=== PATIENT | female | born 1980 | race Hispanic/Latino ===

== ENCOUNTER 2018-08-06 05:44 | Inpatient (IN) | payer OTHER ==
[2018-08-06 07:12] LABS: Hematocrit 37.9 % (30.3-42.9); Hemoglobin 13.2 gm/dl (10.1-14.3); Mean Corpuscular HGB Conc 35 % (30-34); Mean Corpuscular Volume 93 fl (79-97); Platelet Count 248 K/mm3 (140-440); Red Blood Count 4.08 M/mm3 (3.65-5.03); Red Cell Distribution Width 13.9 % (13.2-15.2)
--- NOTE | 2018-08-06 07:35 | History and Physical Report ---
History of Present Illness Date of examination: 08/06/18 Date of admission: 08/06/18 05:44 Chief complaint: SROM History of present illness: Pt is a 38yo WF EDC 08/11/18; EGA 39 2/7 weeks presents to L&D complaining of SROM clear fluid @ 0430 followed by irregular contractions. She received late care at [facility] since 27 weeks and co-managed by [facility] due to h/o Drug use and Thyroid disease. records are available and GBS is Positive. Past History Past Medical History: thyroid disease Past Surgical History: no surgical history Social history: no significant social history, - Obstetrical History Expected Date of Delivery: 08/16/18 Actual Gestation: 38 Week(s) 4 Day(s) : 3 Medications and Allergies Allergies Allergy/AdvReac Type Severity Reaction Status Date / Time Penicillins Allergy Hives Verified 08/06/18 05:58 Review of Systems All systems: negative - Vital Signs Vital signs: Vital Signs Temp Resp 97.0 F L 08/06/18 05:59 08/06/18 05:59 Temp Pulse Resp BP Pulse Ox 97.0 F L 20 08/06/18 05:59 08/06/18 05:59 - Physical Exam Breasts: Positive: deferred Cardiovascular: Regular rate Lungs: Positive: Clear to auscultation Abdomen: Positive: normal appearance Genitourinary (Female): Positive: normal external genitalia Vagina: Positive: normal moisture Uterus: Positive: enlarged Extremities: Positive: normal - Obstetrical FHR: category 1 Uterine Contraction Monitor Mode: External Cervical Dilatation: 2.5 Cervical Effacement Percentage: 60 station: -3 Uterine Contraction Pattern: Irregular Uterine Tone Measurement Phase: Contraction Uterine Contraction Intensity: Mild Results Result Diagrams: 08/06/18 06:20 Abnormal lab results 08/06/18 Range/Units 06:20 MCHC 35 H (30-34) % All other labs normal. Assessment and Plan - Patient Problems (1) 39 weeks gestation of Onset Date: 08/06/18 Current Visit: Yes Status: Acute Plan to address problem: A: IUP @ 39 2/7 weeks in labor +GBS P: Admit to L&D for expectant vaginal delivery IV Clindamycin
[2018-08-06] MEDS ORDERED: STADOL IV PRN (08:23)
[2018-08-06] MEDS ORDERED: SUBLIMAZE IV PRN (08:23)
[2018-08-06] MEDS ORDERED: BRETHINE IVP PRN (08:23)
[2018-08-06] MEDS ORDERED: BRETHINE SUB-Q PRN (08:23)
--- NOTE | 2018-08-06 08:30 | Ultrasound Report ---
FINAL REPORT EXAM: US OB LIMITED HISTORY: position COMPARISONS: None. FINDINGS: Transabdominal limited grayscale, color Doppler and M-mode 3rd trimester ultrasound Single living intrauterine with recorded cardiac activity of 138 beats per minute in cephal ic presentation and with subjectively normal amniotic fluid volume and amniotic fluid index of approx imately 19 cm. IMPRESSION: Single living intrauterine in cephalic presentation.
[2018-08-06] MEDS ORDERED: PHENERGAN PO PRN ×2 (09:00→16:13)
[2018-08-06] MEDS ORDERED: LACTATED RINGERS 1,000 ML IV SCH (09:00)
[2018-08-06] MEDS ORDERED: PITOCin/NS 20 UNIT/1000ML DRIP 20 UNITS/1,000 ML BAG IV SCH ×2 (09:00→17:00)
[2018-08-06] MEDS ORDERED: ZOFRAN IV PRN ×2 (09:00→16:13)
[2018-08-06] MEDS ORDERED: PITOCin/NS 30 UNIT/500ML 30 UNITS/500 ML BAG IV SCH (09:00)
[2018-08-06] MEDS ORDERED: CLEOCIN 900 MG/50 mL 900 MG/50 ML BAG IV SCH (09:00)
[2018-08-06] MEDS ORDERED: XYLOCAINE 2% INFILTRATI ONE (09:30)
--- NOTE | 2018-08-06 11:18 | Ultrasound Report ---
ULTRASOUND OB LIMITED History: Evaluate position Technique: Transabdominal ultrasound with Doppler interrogation. Gestation: Single Position: Cephalic Heart Rate: 132 BPM
[2018-08-06] MEDS ORDERED: NARCAN 2 MG/2 ML IV PRN (11:21)
--- NOTE | 2018-08-06 11:21 | Anesthesia Consultation ---
Anesthesia Consult and Med Hx Date of service: 08/06/18 - Airway Anesthetic Teeth Evaluation: Good ROM Head & Neck: Adequate Mental/Hyoid Distance: Adequate Mallampati Class: Class III Intubation Access Assessment: Possibly Difficult - Pulmonary Exam CTA: Yes - Cardiac Exam Cardiac Exam: RRR - Pre-Operative Health Status ASA Pre-Surgery Classification: ASA2 Proposed Anesthetic Plan: Epidural, Spinal - Pulmonary Hx Smoking: Yes Hx Asthma: No COPD: No Hx Pneumonia: No - Cardiovascular System Hx Hypertension: No - Central Nervous System Hx Seizures: No Hx Psychiatric Problems: No - Endocrine Hx Renal Disease: No Hx End Stage Renal Disease: No Hx Hypothyroidism: No Hx Hyperthyroidism: Yes (hx graves disease) - Hematic Hx Anemia: No Hx Sickle Cell Disease: No - Other Systems Hx Alcohol Use: No
--- NOTE | 2018-08-06 11:21 | Anesthesia Day of Surgery ---
Anesthesia Day of Surgery - Day of Surgery Patient Examined: Yes Patient H&P Reviewed: Yes Patient is NPO: Yes
[2018-08-06] MEDS ORDERED: fentaNYL-BUPIV 2 MCG/ML-0.125% 200 MCG/100 ML BAG EPIDURAL SCH (12:00)
--- NOTE | 2018-08-06 16:05 | Procedure Note ---
OB Delivery Note - Delivery Date of Delivery: 08/06/18 Surgeon: MELISSA FELICIANO Estimated blood loss: 100cc - Vaginal Delivery presentation: vertex Delivery position: OP Intrapartum events: PROM->1hr before delivery, mult.variable deceleratio Delivery induction: none Delivery augmentation: rupture of membranes, pitocin Delivery monitor: external FHT, external uterine Route of delivery: Delivery placenta: spontaneous Delivery cord: nuchal cord, 3 umbilical vessels Episiotomy: none Delivery laceration: none Anesthesia: epidural Delivery comments: delivered OP and placed on Mom's chest for [id number] bonding and delayed cord clamping, cut by friend - Infant A at 1 minute: 7 at 5 minutes: 9 Gender: Male (2732gms)
[2018-08-06] MEDS ORDERED: BENADRYL PO PRN (16:13)
[2018-08-06] MEDS ORDERED: NORCO 5/325 PO PRN (16:13)
[2018-08-06] MEDS ORDERED: LANSINOH TP PRN (16:13)
[2018-08-06] MEDS ORDERED: TYLENOL PO PRN (16:13)
[2018-08-06] MEDS ORDERED: PHENERGAN PR PRN (16:13)
[2018-08-06] MEDS ORDERED: DULCOLAX PR PRN (16:13)
[2018-08-06] MEDS ORDERED: TUCKS PAD TP PRN (16:13)
[2018-08-06] MEDS ORDERED: MILK OF MAGNESIA PO PRN (16:13)
[2018-08-06] MEDS ORDERED: SODIUM CHLORIDE FLUSH SYRINGE 10 ML IV SCH (17:00)
[2018-08-06] MEDS: IBUPROFEN PO SCH (18:12)
[2018-08-06] MEDS ORDERED: MINERAL OIL PO PRN (22:00)
[2018-08-07] MEDS: FEOSOL PO SCH ×2 (00:02→10:44)
[2018-08-07] MEDS: COLACE PO SCH ×2 (00:02→10:44)
[2018-08-07] MEDS: IBUPROFEN PO SCH ×4 (00:02→18:33)
[2018-08-07] MEDS ORDERED: BOOSTRIX IM ONE (06:00)
[2018-08-07 07:44] LABS: Hematocrit 33.1 % (30.3-42.9); Hemoglobin 11.4 gm/dl (10.1-14.3)
--- NOTE | 2018-08-07 08:49 | Progress Note ---
Assessment and Plan - Patient Problems (1) 39 weeks gestation of Onset Date: 08/06/18 Current Visit: Yes Status: Resolved (2) (normal spontaneous vaginal delivery) Onset Date: 08/07/18 Current Visit: Yes Status: Resolved Plan to address problem: A: S/P - PPD #1 Doing well Asymptomatic anemia - stable P: May go home tomorrow. Subjective - Subjective Date of service: 08/07/18 Principal diagnosis: s/p - PPD #1 Interval history: Pt is feeling well without complaints. Bleeding improved. Patient reports: appetite normal, voiding normally, pain well controlled, flatus, ambulating normally, no dizzy ambulation, no nauseated Likely: doing well, nursing well Objective - Vital Signs Latest vital signs: Vital Signs Temp Pulse Resp BP BP Pulse Ox 08/07/18 05:53 20 08/07/18 00:00 98.0 F 77 20 101/64 99 08/06/18 20:52 20 08/06/18 20:10 98.2 F 84 20 132/77 98 08/06/18 18:55 98.1 F 84 16 115/72 99 08/06/18 17:31 95 H 137/64 08/06/18 17:16 101 H 144/68 08/06/18 17:01 93 H 133/64 08/06/18 16:47 94 H 133/66 08/06/18 16:32 91 H 134/69 08/06/18 16:17 103 H 133/81 08/06/18 16:11 97 H 128/73 08/06/18 16:01 111 H 125/61 08/06/18 15:47 92 H 122/73 08/06/18 15:46 99 H 98 08/06/18 15:41 99 H 98 08/06/18 15:35 98 H 99 08/06/18 15:32 86 119/65 08/06/18 15:31 87 100 08/06/18 15:25 84 99 08/06/18 15:24 100 H 88 08/06/18 15:21 87 100 08/06/18 15:19 110 H 94 08/06/18 15:17 93 H 131/65 08/06/18 15:16 91 H 98 08/06/18 15:13 106 H 93 08/06/18 15:10 104 H 98 08/06/18 15:06 99 H 98 08/06/18 15:02 97 H 120/75 08/06/18 14:53 105 H 98 08/06/18 14:48 85 98 08/06/18 14:47 93 H 108/57 08/06/18 14:44 95 H 99 08/06/18 14:39 88 98 08/06/18 14:33 86 100 08/06/18 14:29 80 100 08/06/18 14:23 84 100 08/06/18 14:18 86 130/58 100 08/06/18 14:13 86 100 08/06/18 14:09 88 100 08/06/18 14:02 83 106/64 08/06/18 13:46 103 H 100/54 08/06/18 13:33 98 H 101/60 08/06/18 13:17 87 139/66 08/06/18 13:02 106 H 114/59 08/06/18 12:56 88 133/63 08/06/18 12:54 93 H 118/56 08/06/18 12:51 95 H 146/65 08/06/18 12:50 100 H 137/63 08/06/18 12:47 94 H 116/57 08/06/18 12:45 95 H 120/57 08/06/18 12:43 92 H 120/56 08/06/18 12:41 95 H 124/66 08/06/18 12:39 87 111/61 08/06/18 12:37 90 114/58 08/06/18 12:35 93 H 112/56 08/06/18 12:33 96 H 116/59 08/06/18 12:31 89 108/58 08/06/18 12:29 95 H 101/53 08/06/18 12:28 86 104/51 08/06/18 12:26 84 101/58 08/06/18 12:24 81 119/57 08/06/18 12:22 76 122/62 08/06/18 12:21 75 99 08/06/18 12:20 98 H 127/63 08/06/18 12:18 83 131/59 08/06/18 12:16 92 H 100 08/06/18 12:14 87 130/64 08/06/18 12:12 94 H 133/64 08/06/18 12:11 94 H 99 08/06/18 12:09 99 H 117/56 08/06/18 12:07 117 H 123/56 08/06/18 12:06 98 H 98 08/06/18 12:05 86 119/60 08/06/18 12:03 89 114/65 08/06/18 12:01 90 112/65 98 08/06/18 11:59 93 H 110/69 08/06/18 11:57 90 121/65 08/06/18 11:56 94 H 112/58 97 08/06/18 11:54 108 H 87/51 08/06/18 11:51 91 H 118/55 98 08/06/18 11:49 89 123/62 08/06/18 11:48 92 H 133/66 08/06/18 11:46 99 H 98 08/06/18 11:43 85 150/69 08/06/18 11:41 85 96 08/06/18 11:37 86 143/90 08/06/18 11:36 80 96 08/06/18 11:35 92 H 136/81 08/06/18 11:31 91 H 96 08/06/18 11:28 82 140/85 08/06/18 11:26 84 96 08/06/18 11:21 79 97 08/06/18 11:16 82 97 08/06/18 11:11 88 98 08/06/18 11:06 82 98 08/06/18 11:01 83 143/92 98 08/06/18 10:56 87 97 08/06/18 10:51 85 97 08/06/18 10:46 80 96 08/06/18 10:41 83 96 08/06/18 10:36 87 97 08/06/18 10:31 80 96 08/06/18 10:26 87 96 08/06/18 10:21 89 97 08/06/18 10:17 81 129/69 08/06/18 10:16 81 96 08/06/18 10:11 92 H 97 08/06/18 10:06 89 96 08/06/18 10:01 79 96 08/06/18 09:56 84 96 08/06/18 09:51 79 96 08/06/18 09:46 94 H 96 08/06/18 09:41 82 95 08/06/18 09:36 83 97 08/06/18 09:31 83 145/91 97 08/06/18 09:20 86 97 08/06/18 09:15 96 H 98 08/06/18 09:12 96 H 94 08/06/18 09:10 106 H 98 08/06/18 09:05 99 H 96 08/06/18 09:00 77 97 08/06/18 08:55 84 97 08/06/18 08:50 85 97 Intake and Output 08/06/18 08/07/18 08/07/18 22:59 06:59 14:59 Intake Total 240 240 Output Total 600 600 Balance -360 -360 Intake: Oral 240 240 Output: Urine 600 600 Indwelling Catheter 500 Void 100 600 Other: Total, Intake Amount 240 240 Total, Output Amount 100 600 # Voids Void 2 3 Estimated Blood Loss 100 - Exam Abdomen: Present: normal appearance, soft Uterus: Present: normal, firm, fundal height below umbilicus Extremities: Present: normal - Labs Labs: Laboratory Tests 08/06/18 08/06/18 08/06/18 06:20 06:20 06:20 WBC 9.1 RBC 4.08 Hgb 13.2 Hct 37.9 MCV 93 MCH 32 MCHC 35 H RDW 13.9 Plt Count 248 RPR Nonreactive Blood Type A POSITIVE Antibody Screen Negative 08/07/18 07:23 WBC RBC Hgb 11.4 Hct 33.1 MCV MCH MCHC RDW Plt Count RPR Blood Type Antibody Screen
[2018-08-07] MEDS: PRENATAL VITAMIN PO SCH (10:44)
[2018-08-07] MEDS ORDERED: M-M-R II VACCINE SUB-Q ONE (16:13)
[2018-08-08] MEDS: IBUPROFEN PO SCH ×3 (00:03→12:35)
[2018-08-08] MEDS: COLACE PO SCH ×2 (00:03→10:12)
[2018-08-08] MEDS: FEOSOL PO SCH (00:03)
[2018-08-08] MEDS: PRENATAL VITAMIN PO SCH (10:12)
--- NOTE | 2018-08-08 13:21 | Discharge Summary ---
Providers - Providers Date of Admission: 08/06/18 05:44 Date of discharge: 08/08/18 Attending physician: MELISSA FELICIANO Primary care physician: MELISSA FELICIANO Hospitalization Reason for admission: active labor, rupture of membranes, IUP at term Delivery: Episiotomy: none Laceration: none Other procedures: none complications: none Discharge diagnosis: IUP at term delivered [place] baby: male Hospital course: Unremarkable. Condition at discharge: Good Disposition: DC-01 TO HOME OR SELFCARE - Discharge Diagnoses (1) 39 weeks gestation of Status: Resolved (2) (normal spontaneous vaginal delivery) Status: Resolved Plan - Discharge Medications Prescriptions: Ferrous Sulfate [Feosol 325 MG tab] 325 mg PO BID #60 tablet Ibuprofen [Motrin 600 MG tab] 600 mg PO Q6HR #30 tablet Vit-Fe Fumar-FA [ Vitamin] 1 each PO QDAY #30 tablet - Provider Discharge Summary Activity: routine, no sex for 6 weeks, no heavy lifting 4 weeks, no strenuous exercise Diet: routine Instructions: routine Additional instructions: [] Smoking cessation referral if applicable(refer to patient education folder for contact #) [] Refer to [facility] Booklet Call your doctor immediately for: * Fever > 100.5 * Heavy vaginal bleeding ( >1 pad per hour) * Severe persistent headache * Shortness of breath * Reddened, hot, painful area to leg or breast * Drainage or odor from incision. * Keep incision clean and dry at all times and follow doctor's instructions regarding bathing/showering - Follow up plan Follow up: MELISSA FELICIANO MD [Primary Care Provider] - 6 Weeks MICHEAL ALVARADO CNM [Advanced Practice Nurse] - 6 Weeks
[2018-08-08 16:38] VITALS: BP 111/57
== END 2018-08-08 16:30 | disposition home or self-care (01) | DRG 775 ==
LOC: LD 05:44 → OB 18:53
PROVIDERS: ADMIT Obstetrics & Gynecology; ATTEND Obstetrics & Gynecology
PROC: 10E0XZZ Delivery of Products of Conception, External Approach (ICD-10-PCS; principal; 2018-08-06)
PROC: 3E0R3BZ Introduction of Anesthetic Agent into Spinal Canal, Percutaneous Approach (ICD-10-PCS; 2018-08-06)
PROC: 00HU33Z Insertion of Infusion Device into Spinal Canal, Percutaneous Approach (ICD-10-PCS; 2018-08-06)
PROC: 3E0234Z Introduction of Serum, Toxoid and Vaccine into Muscle, Percutaneous Approach (ICD-10-PCS; 2018-08-07)
DX: O99.824 Streptococcus B carrier state complicating childbirth (principal); O99.284 Endocrine, nutritional and metabolic diseases complicating childbirth; E05.90 Thyrotoxicosis, unspecified without thyrotoxic crisis or storm; O99.334 Smoking (tobacco) complicating childbirth; F17.200 Nicotine dependence, unspecified, uncomplicated; O76 Abnormality in fetal heart rate and rhythm complicating labor and delivery; O69.81X0 Labor and delivery complicated by cord around neck, without compression, not applicable or unspecified; O42.92 Full-term premature rupture of membranes, unspecified as to length of time between rupture and onset of labor; O90.81 Anemia of the puerperium; D64.9 Anemia, unspecified; Z37.0 Single live birth; Z3A.38 38 weeks gestation of pregnancy; Z88.0 Allergy status to penicillin; Z23 Encounter for immunization
CPT/HCPCS: 36415; 76815; 85014; 85018; 85027; 86592; 86850; 86900; 86901; G0378; J2590; J3010; J7120

== ENCOUNTER 2018-09-08 07:22 | Day surgery (SDC) | payer OTHER ==
[~2018-09-08 07:22] MED LIST: MARCAINE 0.5% INFILTRATI ONE
[2018-09-08] MEDS ORDERED: MARCAINE 0.5% INFILTRATI ONE ×2 (07:36→10:01)
--- NOTE | 2018-09-08 07:49 | Short Stay Summary ---
Short Stay Documentation Date of service: 09/08/18 Narrative H&P: Patient is a 38-year-old white female status post normal spontaneous vaginal delivery on 08/06/2018 who now presents for permanent sterilization. - History Principal diagnosis: Desires permanent sterilization H&P: obtained from office Past Medical History: hyperthyroidism Past Surgical History: No surgical history Social history: no significant social history, - Allergies and Medications Current Medications: Allergies Penicillins Allergy (Verified 09/07/18 12:44) Anaphylaxis pineapple Allergy (Verified 09/07/18 12:44) Swelling Home Medications Medication Instructions Recorded Confirmed Last Taken Type Aspirin/Acetaminophen/Caffeine 1 each PO PRN PRN 09/07/18 09/07/18 Unknown History [[employer] Ex-Str Powder Packet] - Physical exam General appearance: no acute distress Integumentary: no rash HEENT: Atraumatic Lungs: Clear to auscultation Breasts: deferred Heart: Regular rate Gastrointestinal: normal Female Genitourinary: deferred Rectal Exam: deferred Extremities: no ischemia, No edema Neurological: Normal gait, Normal speech - Brief post op/procedure progress note Date of procedure: 09/08/18 Pre-op diagnosis: Desires permanent sterilization Post-op diagnosis: same Procedure: Laparoscopic bilateral tubal ligation Anesthesia: GETA Findings: Normal uterus with normal tubes and ovaries bilaterally Surgeon: MELISSA FELICIANO Estimated blood loss: minimal Pathology: none Condition: stable - Hospital course Hospital course: Unremarkable. - Disposition Condition at discharge: Good Disposition: DC-01 TO HOME OR SELFCARE - Discharge Diagnoses (1) Encounter for sterilization Status: Resolved Short Stay Discharge Plan Activity: no restrictions Diet: regular Wound: open to air, keep clean and dry Follow up with: PRIMARY CARE, [Primary Care Provider] - 7 Days MELISSA FELICIANO MD [Staff Physician] - 14 Days Prescriptions: Ibuprofen [Motrin] 800 mg PO Q8HR PRN #20 tablet PRN Reason: Pain, Moderate (4-6)
[2018-09-08] MEDS ORDERED: CLEOCIN 600 MG/50 mL 600 MG/50 ML BAG IV NR (08:00)
[2018-09-08] MEDS ORDERED: GENTAMICIN IV SCH (08:00)
[2018-09-08] MEDS ORDERED: LACTATED RINGERS 1,000 ML IV SCH (08:00)
[2018-09-08] MEDS ORDERED: GENTAMICIN/NS 80 MG/100 ML 100 ML IV NR (08:00)
[2018-09-08 08:40] LABS: Hematocrit 45.1 % (30.3-42.9); Hemoglobin 14.9 gm/dl (10.1-14.3)
[2018-09-08] MEDS ORDERED: NEURONTIN PO NR (08:59)
[2018-09-08] MEDS ORDERED: TYLENOL PO NR (09:00)
[2018-09-08] MEDS ORDERED: PEPCID IV NR (09:02)
[2018-09-08] MEDS ORDERED: DIPRIVAN 10 MG/ML IV ONE (09:28)
[2018-09-08] MEDS ORDERED: SUBLIMAZE ONE (09:29)
[2018-09-08] MEDS ORDERED: VERSED IV NR (10:00)
[2018-09-08] MEDS ORDERED: NACL 0.9% IR ONE (10:01)
[2018-09-08] MEDS ORDERED: XYLOCAINE CARDIAC IV ONE (10:04)
[2018-09-08] MEDS ORDERED: BLOXIVERZ ONE (10:04)
[2018-09-08] MEDS ORDERED: TORADOL ONE (10:04)
[2018-09-08] MEDS ORDERED: ROBINUL ONE ×3 (10:04→12:01)
[2018-09-08] MEDS ORDERED: DECADRON ONE (10:04)
[2018-09-08 11:29] VITALS: BP 115/65
[2018-09-08] MEDS ORDERED: VERSED IV ONE (12:00)
[2018-09-08] MEDS ORDERED: QUELICIN ONE ×2 (12:01)
[2018-09-08] MEDS ORDERED: ZEMURON IV ONE (12:01)
--- NOTE | 2018-09-08 16:26 | Anesthesia Day of Surgery ---
Anesthesia Day of Surgery - Day of Surgery Patient Examined: Yes Patient H&P Reviewed: Yes Patient is NPO: Yes Beta Blockers: No Cardiac Clearance: No Pulmonary Clearance: No Josh's Test: N/A
--- NOTE | 2018-09-08 16:27 | Anesthesia Consultation ---
Anesthesia Consult and Med Hx Date of service: 09/08/18 - Airway Anesthetic Teeth Evaluation: Good ROM Head & Neck: Adequate Mental/Hyoid Distance: Adequate Mallampati Class: Class II Intubation Access Assessment: Good - Pulmonary Exam CTA: Yes - Cardiac Exam Cardiac Exam: RRR - Pre-Operative Health Status ASA Pre-Surgery Classification: ASA2 Proposed Anesthetic Plan: General - Pulmonary Hx Smoking: Yes (1/2 PPD X 20 YRS) Hx Asthma: No COPD: No Hx Pneumonia: No Hx Sleep Apnea: No (ELVIN PRE SCREEN NEGATIVE) - Cardiovascular System Hx Hypertension: No - Central Nervous System Hx Seizures: No Hx Psychiatric Problems: No - Endocrine Hx Renal Disease: No Hx End Stage Renal Disease: No Hx Hypothyroidism: No Hx Hyperthyroidism: Yes (HX GRAVES DISEASE- NO MEDS YET, JUST "WATCHING") - Hematic Hx Anemia: Yes (WITH PREG) Hx Sickle Cell Disease: No - Other Systems Hx Alcohol Use: No Hx Cancer: No
--- NOTE | 2018-09-13 13:37 | Operative Report ---
Operative Report Operative Report: PREOPERATIVE DIAGNOSIS: Desires permanent sterilization POSTOPERATIVE DIAGNOSIS: Same OPERATIVE PROCEDURE: Laparoscopic bilateral tubal ligation. SURGEON: Yanick Yoon MD ANESTHESIA: Gen. endotracheal intubation ANESTHESIOLOGIST: Dr. Acuña ESTIMATED BLOOD LOSS: Minimal FINDINGS: Normal uterus. Normal tubes and ovaries bilaterally. COMPLICATIONS: None COUNTS: Correct x3. PROCEDURE: After the patient was correctly identified and after general anesthesia was administered, the patient was prepped and draped in usual sterile fashion and placed in dorsal lithotomy position. First, the bladder was emptied using a straight catheter. Next, a speculum was placed in the vaginal vault and the anterior lip of the cervix was grasped using a single-tooth tenaculum. The uterine manipulator was then placed and the tenaculum and speculum were removed. Attention was then turned to the abdomen where first a periumbilical incision was made using a skin knife, and the Optiview trocar was inserted under direct visualization. After an adequate amount of abdominal insufflation, visualization of the pelvic organs found the uterus to be normal, and the tubes and ovaries to be normal bilaterally. Next, the left fallopian tube was grasped using the Voyant device, and after identifying the fimbriated end of the left tube, this tube was cauterized in 3 continuous [address] along the proximal portion of the left tube. The same procedure was performed on the right fallopian tube after first identifying the fimbriated end of the right tube. This tube was also cauterized in 3 continuous places along the proximal portion of the right tube. At this point, the procedure was then considered complete. All instruments were removed from the abdomen. The abdomen was deflated and the periumbilical incision was closed using 0 Vicryl suture in a [id number] configuration on the fascia, followed by 4-0 Monocryl suture in sub-cuticular fashion on the skin. The incision was also infiltrated using 0.5% Marcaine solution. The uterine manipulator was removed. The patient tolerated the procedure well and was transferred to recovery room stable condition.
== END 2018-09-08 07:23 | disposition home or self-care (01) ==
LOC: OR 07:22
PROVIDERS: ATTEND Obstetrics & Gynecology
DX: Z30.2 Encounter for sterilization (principal); K21.9 Gastro-esophageal reflux disease without esophagitis; E03.9 Hypothyroidism, unspecified; F17.210 Nicotine dependence, cigarettes, uncomplicated; Z80.8 Family history of malignant neoplasm of other organs or systems; Z88.0 Allergy status to penicillin; Z79.82 Long term (current) use of aspirin; Z91.018 Allergy to other foods; Z98.42 Cataract extraction status, left eye; Z86.2 Personal history of diseases of the blood and blood-forming organs and certain disorders involving the immune mechanism; Z82.49 Family history of ischemic heart disease and other diseases of the circulatory system
CPT/HCPCS: 36415; 58670; 81025; 85014; 85018; J0330; J1100; J1580; J1885; J2001; J2250; J2704; J2710; J3010; J7120